=== PATIENT | male | born 1960 | race Caucasian/White ===

== ENCOUNTER 2016-11-20 16:47 | Emergency (ER) | payer BC ==
[~2016-11-20] VITALS: Ht 180.3 cm; Wt 90.9 kg
[~2016-11-20 16:47] MED LIST: ADDERALL20 MG PO; AMOXICILLIN 8751 TAB PO; NO HOME MEDICATIONS; PERCOCET 325 MG1 TA2 PO; PROPECIA1 MG PO
[2016-11-20 16:50] VITALS: BP 164/91; TEMP 98.6
[2016-11-20] MEDS ORDERED: ADDERALL10 MG PO (17:35)
[2016-11-20] MEDS ORDERED: AMOXICILLIN 8751 TAB PO (18:02)
[2016-11-20 18:25] VITALS: PULSE 92
[2016-11-29] MEDS ORDERED: DOXYCYCLINE 10100 MG PO (13:11)
== END 2016-11-20 18:29 | disposition home or self-care (01) ==
LOC: COL.ER 16:47
DX: S61.012A Laceration without foreign body of left thumb without damage to nail, initial encounter (principal); W31.2XXA Contact with powered woodworking and forming machines, initial encounter; Y92.009 Unspecified place in unspecified non-institutional (private) residence as the place of occurrence of the external cause; Z23 Encounter for immunization

== ENCOUNTER 2016-11-27 21:56 | Emergency (ER) | payer BC ==
[~2016-11-27 21:56] MED LIST changes: +ADDERALL10 MG PO
[2016-11-27 22:15] VITALS: BP 137/92; PULSE 96
[2016-11-29] MEDS ORDERED: DOXYCYCLINE 10100 MG PO (13:11)
== END 2016-11-27 22:15 | disposition home or self-care (01) ==
LOC: COL.ER 21:56
DX: R69 Illness, unspecified (principal)

== ENCOUNTER → 2017-01-15 | Outpatient (CLI) | payer BC ==
[~2017-01-15] MED LIST changes: +DOXYCYCLINE 10100 MG PO
== END ==
LOC: COL.LAB 11:42
DX: Z12.11 Encounter for screening for malignant neoplasm of colon (principal); Z00.00 Encounter for general adult medical examination without abnormal findings

== ENCOUNTER → 2018-01-08 | Outpatient (REF) ==
[2018-01-08 16:57] LABS: PSA-TOTAL 0.39 ng/mL (0-4)
[2018-01-08 17:23] LABS: THYROID STIMULATING HORMONE 1.18 uIU/mL (0.465-4.680)
== END ==
LOC: ZLAB.WCH 16:11
PROVIDERS: Internal Medicine
DX: Z01.89 Encounter for other specified special examinations (principal)
CPT/HCPCS: G0103